=== PATIENT | female | born 1940 | race Caucasian/White ===

== ENCOUNTER → 2016-06-01 | Outpatient (CLI) | payer OTHER ==
[~2016-06-01] MED LIST: ALBU18002 INH; ALBU1AER9 INH; AMB5 PO; AMT25 PO; ASCO500T16 PO; ASPI325T39 PO; BECL0.072 INH; CHOL100027 PO; COEN150C PO; FEXO1TAB46 PO; FLAX10007 PO; MINO1TAB PO; MULT-506 PO; OMEGCAP2 PO; PARO10TA3 PO; POLYSOL4 OPB; PRLSR20 PO; PXL20 PO; ROSU5TAB PO; VITA400C3 PO; XNX25 PO; XNX5 PO
--- NOTE | 2016-06-01 12:55 | DIAGNOSTIC IMAGING REPORT ---
RIGHT KNEE 2 VIEWS CLINICAL HISTORY: Right knee pain. FINDINGS: AP and crosstable lateral views of the right knee are compared to study dated 09/25/2010. The skeletal structures are osteopenic. No fracture is seen. There is mild tricompartmental degenerative joint space narrowing. There are large lateral marginal osteophytes as well as degenerative beaking of the tibial spine. Patellar enthesophytes are observed. There is no significant joint effusion. The overlying soft tissues are within normal limits. IMPRESSION: 1. No acute bony abnormality is seen in the right knee. 2. Osteopenia and mild arthritic change as above. This is similar in appearance to the 2010 examination. Electronically signed by: Alberto Clements M.D. 06/01/2016 12:53 PM Dictated Date/Time: 06/01/2016 12:52 PM
== END | disposition home or self-care (01) ==
LOC: C.RAD1850 12:06
PROVIDERS: ATTEND Family Medicine
DX: M25.569 Pain in unspecified knee (principal)

== ENCOUNTER 2016-06-18 21:35 | Emergency (ER) | payer OTHER ==
[~2016-06-18] VITALS: Ht 165.1 cm; Wt 65.0 kg
[~2016-06-18 21:35] MED LIST changes: -ALBU18002 INH; -PARO10TA3 PO; -XNX5 PO
[2016-06-18 21:39] VITALS: TEMP 36.3; Ht 165.1 cm; Wt 65.0 kg
[2016-06-18] MEDS ORDERED: PARO10TA3 PO (22:22)
[2016-06-18] MEDS ORDERED: ALBU18002 INH (22:22)
[2016-06-18] MEDS ORDERED: AMB5 PO (22:22)
[2016-06-18] MEDS ORDERED: XNX5 PO (22:22)
[2016-06-18] MEDS ORDERED: ONDANSETRON HOME PACK 4MG OD TAB ONE (22:27)
[2016-06-18 22:51] VITALS: BP 145/85; PULSE 70; O2SAT 97
--- NOTE | 2016-06-18 23:30 | EMERGENCY ROOM VISIT NOTE ---
History Report prepared by Judith: Urban Lopez Under the Supervision of: Dr. Gio Benavides D.O. First contact with patient: 22:21 Chief Complaint: NAUSEA Stated Complaint: NAUSEA,DIZZYNESS Nursing Triage Summary: PT ate at [employer] yesterday for dinner, tonight was at poetry reading, PT had a sip of "something orange and fruity, non-alcoholic" since PT has increased dizziness with nausea and vomiting X 3. PT denies CP or SOB, lungs CTA. PT has no abd pain, and denies any diarrhea. PT has nausea with vomiting and chills at times. Normal bowel sounds in all quadrants. PT pale in color. PT also has HX of tinitus and ringing in right ear. History of Present Illness The patient is a 75 year old female who presents to the Emergency Room with complaints of an episode of dizziness occurring this evening. She states she was at a poetry reading and had some non-alcoholic "orange fizzy stuff" to drink. She notes she started to feel dizzy and nauseous and had trouble walking. Her friends helped her into a car and drove her to the ER. The patient reports vomiting on the way to the ER, which made her feel slightly better. She notes this has happened to her before in February of 2016. Source of History: patient Onset: this evening Position: other (global) Quality: other (dizzines) Timing: other (episode) Associated Symptoms: + nausea, + vomiting Review of Systems See HPI for pertinent positives & negatives. A total of 10 systems reviewed and were otherwise negative. Past Medical & Surgical Medical Problems: (1) Invasive ductal carcinoma of breast, female (2) Leukopenia Family History No pertinent family history stated. Social History Smoking Status: Never Smoker Current/Historical Medications Scheduled Alprazolam (Alprazolam), 0.25 MG PO HS Ascorbic Acid (Ascorbic Acid), 500 MG PO DAILY Cholecalciferol (Vitamin D 1000 Unit), 1,000 INTER.UNIT PO DAILY Coenzyme Q10 (Ubidecarenone) (Co Q-10), 200 MG PO DAILY Fexofenadine Hcl (Molly), 180 MG PO DAILY Multivitamin (Multivitamin), 1 TAB PO DAILY [place]-3 Fatty Acids (Fish Oil), 1 CAP PO DAILY Omeprazole (Prilosec), 20 MG PO DAILY Paroxetine HCl (Paroxetine), 5 MG PO HS Polyethylene Glycol-Propylene (Systane), 1 DROP OPB DAILY Rosuvastatin Calcium (Crestor), 3.75 MG PO HS Vitamin E (Vitamin E 400 Iu), 400 INTER.UNIT PO when remembered Scheduled PRN Albuterol Sulfate (Proair Respiclick), 1-2 PUFFS INH Q4 PRN for SOB/Wheezing Aspirin (Aspirin Ec), 325 MG PO DAILY PRN for Pain Zolpidem Tartrate (Zolpidem Tartrate), 5 MG PO HS PRN for Sleep Allergies Coded Allergies: Doxycycline (Unverified Allergy, Unknown, UNKNOWN, 06/18/16) Penicillins (Unverified Allergy, Unknown, RASH, 06/18/16) Sulfa Drugs (Unverified Allergy, Unknown, RASH, 06/18/16) Moxifloxacin (Verified Adverse Reaction, Intermediate, NAUSEA/VOMITING, ) Physical Exam Vital Signs Date Time Temp Pulse Resp B/P Pulse Ox O2 Delivery O2 Flow Rate FiO2 06/18/16 22:51 70 18 145/85 97 06/18/16 22:03 70 06/18/16 21:39 36.3 72 18 156/79 95 Room Air Physical Exam VITAL SIGNS: were reviewed as above. GENERAL:Non-toxic in appearance. SKIN: Warm dry and pink. HEAD: Normocephalic and atraumatic. OROPHARYNX: Is clear and moist NECK: Supple without lymphadenopathy or meningismus. LUNGS: clear. HEART: Regular rate and rhythm. ABDOMEN: Soft and nontender. EXTREMITIES: Warm and well perfused. NEUROLOGICALLY: Awake alert and oriented without focal deficit. Cranial nerves 2 -12 are intact. There is no pronator drift. Cerebellar testing is within normal limits. There is no nystagmus. There is no facial droop. Speech is clear. Vision is grossly normal. MUSCULOSKELETAL: Good muscle tone. No evidence of trauma. Medical Decision & Procedures Medications Administered Medications (Trade) Dose Ordered Sig/Matti Route Start Time Stop Time Status Last Admin Dose Admin Ondansetron HCl (ZOFRAN ODT 4MG Home Pack) 1 homepack STK-MED ONCE .ROUTE 06/18/16 22:27 06/18/16 22:29 DC 06/18/16 22:30 1 HOMEPACK ED Course 2222: Previous medical records were reviewed. The patient was evaluated in room B9. A complete history and physical examination was performed. 2250: On reevaluation, the patient is hemodynamically stable. I discussed the results and findings with the patient. She verbalized agreement of the treatment plan. The patient was discharged home. Medical Decision Differential includes acute coronary syndrome, myocardial infarction, CVA, TIA, anemia, infection, pneumonia, UTI, pyelonephritis, poor nutrition, dehydration, electrolyte disturbance,hypoglycemia. This is a 75-year-old female who presents to the ED with a chief complaint of some nausea and dizziness. The patient states that she was at a social event [employer]. She drank some orange drink and shortly thereafter felt nauseated. She states that she was feeling a little dizzy and possibly even faint. Her friends brought her here and on the way here, she vomited. She states that after vomiting, she felt much better. When I saw her in the emergency department, the patient states that she is feeling much better. She was able to stand without any symptoms. She stated that she would like to just go home. She did not want any workup here. She states that she has had similar symptoms once previously in February. Those symptoms resolved on their own. The patient was just a little nauseated. She was offered Zofran here. She states that she would take a Zofran tablet home with her but did not want to take anything here. The patient was offered testing but stated that she was feeling better and wanted to sleep. She was discharged, per her wishes. Zofran home pack provided. Impression Primary Impression: Dizziness, nonspecific Additional Impression: Vomiting Scribe Attestation The scribe's documentation has been prepared under my direction and personally reviewed by me in its entirety. I confirm that the note above accurately reflects all work, treatment, procedures, and medical decision making performed by me. Departure Information Patient Instructions My [facility] Problem Qualifiers
== END 2016-06-18 22:52 | disposition home or self-care (01) ==
LOC: C.EDB 21:36
DX: R42 Dizziness and giddiness (principal); R11.2 Nausea with vomiting, unspecified

== ENCOUNTER → 2016-12-31 | Outpatient (CLI) | payer OTHER ==
[~2016-12-31] MED LIST changes: +ALBU18002 INH; -ALBU1AER9 INH; -AMT25 PO; -BECL0.072 INH; -FLAX10007 PO; -MINO1TAB PO; +PARO10TA3 PO; -PXL20 PO; -XNX25 PO; +XNX5 PO
[2016-12-31 20:45] LABS: BASO % 0.2 %; BASO ABS # 0.01 K/uL (0-0.2); COMPLETE YES; EOS % 4.6 %; HEMATOCRIT 41.7 % (37-47); LYMPH % 44.4 %; LYMPH ABS # 2.21 K/uL (1.2-3.4); MEAN CELL VOLUME 95.6 fL (80-100); MEAN CORPUSCULAR HEMOGLOBIN 32.3 pg (25-34); MEAN CORPUSCULAR HGB CONC 33.8 g/dl (32-36); MEAN PLATELET VOLUME 10.1 fL (7.4-10.4); MONO % 9.6 %; NEUT % 41.2 %; PLATELET COUNT 155 K/uL (130-400); RED BLOOD COUNT 4.36 M/uL (4.2-5.4); WHITE BLOOD COUNT 4.98 K/uL (4.8-10.8)
[2016-12-31 21:07] LABS: ALT/SGPT 26 U/L (12-78); BLOOD UREA NITROGEN 13 mg/dl (7-18); BUN/CREATININE RATIO 17.7 (10-20); CARBON DIOXIDE 28 mmol/L (21-32); CHLORIDE 107 mmol/L (98-107); CREATININE 0.73 mg/dl (0.60-1.20); GLUCOSE 87 mg/dl (70-99); POTASSIUM 3.9 mmol/L (3.5-5.1); SODIUM 140 mmol/L (136-145)
[2016-12-31 21:10] LABS: ALB/GLOB RATIO 1.1 (0.9-2); ALKALINE PHOSPHATASE 68 U/L (45-117); AST/SGOT 19 U/L (15-37)
== END | disposition home or self-care (01) ==
LOC: C.LAB 20:00
PROVIDERS: ATTEND Family Medicine
DX: B34.9 Viral infection, unspecified (principal)

== ENCOUNTER → 2017-12-20 | Outpatient (CLI) | payer OTHER | END | disposition home or self-care (01) | LOC: C.PAPS 18:42 | PROVIDERS: ATTEND Obstetrics & Gynecology | DX: Z12.4 Encounter for screening for malignant neoplasm of cervix (principal) ==